=== PATIENT | male | born 1990 | race African-American/Black ===

== ENCOUNTER 2017-06-12 07:25 | Emergency (ER) | payer SELFPAY ==
[2017-06-12] MEDS ORDERED: Sodium Chloride 0.9% 10 ML Syringe FLUSH PRN (07:50)
[2017-06-12] MEDS ORDERED: HYDROmorphone 0.5 MG/0.5 ML Syringe IVPUSH ONE (07:52)
[2017-06-12] MEDS ORDERED: Famotidine 20 MG/2 ML SDV IVPUSH ONE (07:52)
[2017-06-12] MEDS ORDERED: Ondansetron 4 MG/2 ML SDV IVPUSH ONE (07:52)
[2017-06-12] MEDS ORDERED: LORazepam 2 MG/ML MDV IVPUSH ONE (07:52)
--- NOTE | 2017-06-12 07:53 | EDM.PDOC ---
ED HPI GENERAL MEDICAL PROBLEM - General Chief Complaint: Chest Pain Stated Complaint: VOMITING AND FEVER Time Seen by Provider: 06/12/17 07:43 Source of Information: Reports: Patient, RN Notes Reviewed - History of Present Illness INITIAL COMMENTS - FREE TEXT/NARRATIVE: 26-year-old male comes in with quite severe anterior chest discomfort, nausea, vomiting. First became ill 2 days ago awakening with nausea vomiting upper abdominal discomfort. States he has no known history for hypertension diabetes or coronary artery disease. He does smokehe was quite ill for about 24 hours. States he felt better yesterday, was able to eat and drink okay without difficulty. And awakened this morning vomiting and then started having severe discomfort upper abdomen radiating up into the anterior mid chest. He does not have pain radiating to the shoulder or arm. The pain does not go into his back. Chest Pain Score (Numeric/FACES): 8 - Related Data Allergies Allergy/AdvReac Type Severity Reaction Status Date / Time No Known Allergies Allergy Verified 06/12/17 07:36 Home Meds: Home Meds Ondansetron [Zofran ODT] 4 mg PO Q8H PRN #7 tab.dis 06/12/17 [Rx] ED ROS GENERAL - Review of Systems Review Of Systems: See Below Constitutional: Denies: Fever, Chills HEENT: Denies: Throat Pain Respiratory: Denies: Shortness of Breath Cardiovascular: Reports: Chest Pain GI/Abdominal: Reports: Abdominal Pain (upper abdominal), Nausea, Vomiting. Denies: Diarrhea, Hematochezia, Melena Musculoskeletal: Denies: Neck Pain, Shoulder Pain, Arm Pain Skin: Reports: No Symptoms Neurological: Reports: Dizziness (mild) ED EXAM, GENERAL - Physical Exam Exam: See Below General Appearance: Alert, Anxious, Moderate Distress Eye Exam: Bilateral Eye: PERRL Throat/Mouth: Normal Inspection, Normal Oropharynx Head: No: Facial Swelling Neck: Supple, Full Range of Motion Respiratory/Chest: No Respiratory Distress, Lungs Clear, Normal Breath Sounds Cardiovascular: Regular Rate, Rhythm GI/Abdominal: Tender (mild tenderness upper mid abdomen) Back Exam: No: CVA Tenderness (L), CVA Tenderness (R) Extremities: Normal Inspection, Normal Range of Motion Neurological: Alert, Oriented Skin Exam: Warm, Dry, Normal Color EKG INTERPRETATION EKG Date: 06/12/17 Rhythm: NSR [place]: Normal P-Wave: Present QRS: Normal ST-T: Other (LVH by voltage) Course - Vital Signs Last Recorded V/S: Last Vital Signs Temp 96.9 F 06/12/17 07:36 Pulse 70 06/12/17 07:36 Resp 20 06/12/17 07:36 BP 152/94 H 06/12/17 07:36 Pulse Ox 100 06/12/17 07:36 - Orders/Labs/Meds Orders: Active Orders 24 hr Category Date Time Status EKG 12 Lead [EKG Documentation Completion] [RC] STAT Care 06/12/17 07:51 Active Peripheral IV Care [RC] . DIRECTED Care 06/12/17 07:51 Active Chest 1V Frontal [CR] Stat Exams 06/12/17 07:51 Taken Sodium Chloride 0.9% [Normal Saline] 1,000 ml Med 06/12/17 08:00 Active IV ONETIME Sodium Chloride 0.9% [Normal Saline] 1,000 ml Med 06/12/17 11:00 Active IV ONETIME Sodium Chloride 0.9% [Saline Flush] Med 06/12/17 07:50 Active 10 ml FLUSH ASDIRECTED PRN Peripheral IV Insertion Adult [OM.PC] Stat Oth 06/12/17 07:51 Ordered Medication Orders Sodium Chloride (Normal Saline) 1,000 mls @ 999 mls/hr IV ONETIME YURIDIA Last Admin: 06/12/17 08:04 Dose: 999 mls/hr Sodium Chloride (Normal Saline) 1,000 mls @ 999 mls/hr IV ONETIME YURIDIA Last Admin: 06/12/17 11:03 Dose: 999 mls/hr Sodium Chloride (Saline Flush) 10 ml FLUSH ASDIRECTED PRN PRN Reason: Keep Vein Open Last Admin: 06/12/17 08:20 Dose: 10 ml Labs: Laboratory Tests 06/12/17 06/12/17 Range/Units 08:05 08:05 WBC 6.43 (4.23-9.07) K/mm3 RBC 5.07 (4.63-6.08) M/mm3 Hgb 16.0 (13.7-17.5) gm/L Hct 46.2 (40.1-51.0) % MCV 91.1 (79.0-92.2) fl MCH 31.6 (25.7-32.2) pg MCHC 34.6 (32.2-35.5) g/dl RDW Std Deviation 44.1 H (35.1-43.9) fL Plt Count 121 L (163-337) K/mm3 MPV 12.9 H (9.4-12.3) fl Neut % (Auto) 65.6 (34.0-67.9) % Lymph % (Auto) 26.7 (21.8-53.1) % [place] % (Auto) 6.7 (5.3-12.2) % Eos % (Auto) 0.5 L (0.8-7.0) Baso % (Auto) 0.3 (0.1-1.2) % Neut # (Auto) 4.22 (1.78-5.38) K/mm3 Lymph # (Auto) 1.72 (1.32-3.57) K/mm3 [place] # (Auto) 0.43 (0.30-0.82) K/mm3 Eos # (Auto) 0.03 L (0.04-0.54) K/mm3 Baso # (Auto) 0.02 (0.01-0.08) K/mm3 Sodium 141 (136-145) mEq/L Potassium 3.2 L (3.5-5.1) mEq/L Chloride 104 (98-107) mEq/L Carbon Dioxide 23 (21-32) mEq/L Anion Gap 17.2 H (5-15) BUN 15 (7-18) mg/dL Creatinine 1.3 (0.7-1.3) mg/dL Est Cr Clr Drug Dosing 72.10 mL/min Estimated GFR (MDRD) > 60 (>60) mL/min BUN/Creatinine Ratio 11.5 L (14-18) Glucose 144 H (74-106) mg/dL Calcium 9.6 (8.5-10.1) mg/dL Total Bilirubin 1.3 H (0.2-1.0) mg/dL AST 22 (15-37) U/L ALT 28 (16-63) U/L Alkaline Phosphatase 51 (46-116) U/L Troponin I < 0.017 (0.00-0.056) ng/mL Total Protein 8.2 (6.4-8.2) g/dl Albumin 4.2 (3.4-5.0) g/dl Globulin 4.0 gm/dL Albumin/Globulin Ratio 1.1 (1-2) Lipase 283 (73-393) U/L Meds: Medications Generic Name Dose Route Start Last Admin Trade Name Freq PRN Reason Stop Dose Admin Sodium Chloride 1,000 mls @ 999 mls/hr 06/12/17 08:00 06/12/17 08:04 Normal Saline IV 999 mls/hr ONETIME YURIDIA Administration Sodium Chloride 1,000 mls @ 999 mls/hr 06/12/17 11:00 06/12/17 11:03 Normal Saline IV 999 mls/hr ONETIME YURIDIA Administration Sodium Chloride 10 ml 06/12/17 07:50 06/12/17 08:20 Saline Flush FLUSH 10 ml ASDIRECTED PRN Administration Keep Vein Open Discontinued Medications Generic Name Dose Route Start Last Admin Trade Name Freq PRN Reason Stop Dose Admin Famotidine 20 mg 06/12/17 07:52 06/12/17 08:05 Pepcid IVPUSH 06/12/17 07:53 20 mg ONETIME ONE Administration Hydromorphone HCl 0.5 mg 06/12/17 07:52 06/12/17 08:06 Dilaudid IVPUSH 06/12/17 07:53 0.5 mg ONETIME ONE Administration Lorazepam 0.5 mg 06/12/17 07:52 06/12/17 08:05 Ativan IVPUSH 06/12/17 07:53 0.5 mg ONETIME ONE Administration Ondansetron HCl 4 mg 06/12/17 07:52 06/12/17 08:05 Zofran IVPUSH 06/12/17 07:53 4 mg ONETIME ONE Administration - Re-Assessments/Exams Free Text/Narrative Re-Assessment/Exam: 06/12/17 11:03 EKG did not show acute findings, patient is been sleeping after half milligram Dilaudid and half milligram Ativan IV. Show that he has become dehydrated from the repetitive vomiting, we'll give a second liter normal saline. 06/12/17 12:49.feeling better chest pain is gone, has been in sinus rhythm, no ectopy, EKG did not show acute changes, troponin, other labs did come back normal, chest x-ray also normal. Departure - Departure Time of Disposition: 11:26 Disposition: Home, Self-Care 01 Condition: Fair Clinical Impression: Atypical chest pain Vomiting Qualifiers: Vomiting type: unspecified Vomiting Intractability: unspecified Nausea presence : with nausea Qualified Code(s): R11.2 - Nausea with vomiting, unspecified Prescriptions: Ondansetron [Zofran ODT] 4 mg PO Q8H PRN #7 tab.dis PRN Reason: Nausea/Vomiting Instructions: Chest Wall Pain, [id number], Nausea and Vomiting, Adult, Easy- to-Read, Nonspecific Chest Pain, [id number] Referrals: PCP,None [Primary Care Provider] - Forms: ED Department Discharge Additional Instructions: clear liquids only until this evening, then very careful bland diet as tolerated Zofran if needed for any further nausea or vomiting. Follow-up clinic if symptoms not resolving as expected, return to ED if symptoms worsening in any way - My Orders Last 24 Hours: My Active Orders 06/12/17 07:50 Sodium Chloride 0.9% [Saline Flush] 10 ml FLUSH ASDIRECTED PRN 06/12/17 07:51 EKG 12 Lead [EKG Documentation Completion] [RC] STAT Peripheral IV Care [RC] . DIRECTED Chest 1V Frontal [CR] Stat Peripheral IV Insertion Adult [OM.PC] Stat 06/12/17 08:00 Sodium Chloride 0.9% [Normal Saline] 1,000 ml IV ONETIME 06/12/17 11:00 Sodium Chloride 0.9% [Normal Saline] 1,000 ml IV ONETIME - Assessment/Plan Last 24 Hours: My Active Orders 06/12/17 07:50 Sodium Chloride 0.9% [Saline Flush] 10 ml FLUSH ASDIRECTED PRN 06/12/17 07:51 EKG 12 Lead [EKG Documentation Completion] [RC] STAT Peripheral IV Care [RC] . DIRECTED Chest 1V Frontal [CR] Stat Peripheral IV Insertion Adult [OM.PC] Stat 06/12/17 08:00 Sodium Chloride 0.9% [Normal Saline] 1,000 ml IV ONETIME 06/12/17 11:00 Sodium Chloride 0.9% [Normal Saline] 1,000 ml IV ONETIME
[2017-06-12] MEDS ORDERED: Sodium Chloride 0.9% 1,000 ML IV SCH ×2 (08:00→11:00)
[2017-06-12 14:01] VITALS: BP 142/80
--- NOTE | 2017-06-13 07:16 | CR ---
Chest: Portable view of the chest was obtained. Comparison: No previous study. Heart size and mediastinum are normal. Lungs are clear. Bony structures are grossly intact. Impression: 1. Nothing acute is appreciated on portable chest x-ray. Diagnostic code #1
== END 2017-06-12 12:45 | disposition home or self-care (01) ==
LOC: JD.ED 07:25
DX: R07.89 Other chest pain (principal); R11.2 Nausea with vomiting, unspecified
CPT/HCPCS: 36415; 71010; 80053; 83690; 84484; 85025; 93005; 96361; 96374; 96375; 99285; J1170; J2060; J2405; J7040; J7050